=== PATIENT | male | born 1990 | race Caucasian/White ===

== ENCOUNTER → 2018-08-30 | Outpatient (CLI) | payer BC ==
[2018-08-30 15:27] LABS: SEMEN VOLUME 1.5 ML (1.5-5.0)
[2018-09-04 16:18] LABS: MISC LAB TEST & RESULT MTHFR
== END ==
LOC: LAB 14:18
PROVIDERS: ATTEND Obstetrics & Gynecology
DX: N46.9 Male infertility, unspecified (principal); R53.83 Other fatigue
CPT/HCPCS: 36415; 82670; 83001; 83002; 83090; 84146; 84402; 84403; 84443; 84630; 85041; 89320

== ENCOUNTER 2018-11-20 05:41 | Outpatient (CLI) | payer BC ==
[~2018-11-20] VITALS: Ht 185.4 cm; Wt 106.6 kg
[2018-11-20] MEDS ORDERED: OMEP20TA7 PO (12:01)
[2018-11-21] MEDS ORDERED: HYDR-34 PO (10:02)
== END 2018-11-20 14:44 | disposition home or self-care (01) ==
LOC: PREOP 05:41
PROVIDERS: ATTEND Surgery
DX: Z01.818 Encounter for other preprocedural examination (principal)

== ENCOUNTER 2018-11-21 08:03 | Day surgery (SDC) | payer BC ==
[~2018-11-21] VITALS: Ht 185.4 cm; Wt 106.6 kg
[~2018-11-21 08:03] MED LIST: OMEP20TA7 PO
[2018-11-21] MEDS ORDERED: ceFAZolin 2 GM IV Premixed 50 ML IV ONE (08:30)
[2018-11-21 08:41] VITALS: BP 124/69
[2018-11-21] MEDS: LACTATED RINGERS 1,000 ML IV PRN ×2 (08:50→10:59)
[2018-11-21] MEDS ORDERED: FAMOTIDINE 20MG/2ML IV (PEPCID) ONE (09:40)
[2018-11-21] MEDS ORDERED: FAMOTIDINE 20MG/2ML IV (PEPCID) IV ONE (09:45)
[2018-11-21] MEDS ORDERED: DEXAMETHASONE 10 MG/ML (DECADRON) 1 ML VIAL ONE (09:56)
[2018-11-21] MEDS ORDERED: fentaNYL INJECTION 100 MCG/2 ML AMP ONE ×2 (09:56→11:01)
[2018-11-21] MEDS ORDERED: proPOfol 200 MG/20 ML (DIPRIVAN) VIAL IV ONE (09:56)
[2018-11-21] MEDS ORDERED: SEVOFLURANE (ULTANE) 15 ML INHAL SOLN ONE ×4 (09:56→12:04)
[2018-11-21] MEDS ORDERED: MIDAZOLAM 2 MG/2 ML (VERSED) VIAL ONE (09:56)
[2018-11-21] MEDS ORDERED: ONDANSETRON 4 MG/2 ML (SDV) Z0FRAN ONE (09:56)
[2018-11-21] MEDS ORDERED: GLYCOPYRROLATE 0.2 MG/ML (ROBINUL) 2 ML VIAL ONE (09:56)
[2018-11-21] MEDS ORDERED: NEOSTIGMINE 1 MG/ML 5 ML SYRINGE ONE (09:56)
[2018-11-21] MEDS ORDERED: LIDOCAINE PF 2% 5 ML (XYLOCAINE) VIAL ONE (09:56)
[2018-11-21] MEDS ORDERED: ROCURONIUM 10 MG/ML 5 ML SYRINGE IV ONE (09:56)
[2018-11-21] MEDS ORDERED: BUP/EPI 0.5% 1:200,000 (SENSORCAINE) 30 ML VIAL ONE (09:59)
--- NOTE | 2018-11-21 09:59 | Progress Note-Pre Operative ---
Pre-Operative Progress Note H&P Reviewed The H&P was reviewed, patient examined and no changes noted. Date Seen by Provider: Nov 21, 2018 Time Seen by Provider: 09:30 Date H&P Reviewed: Nov 21, 2018 Time H&P Reviewed: 09:30 Pre-Operative Diagnosis: chronic calculous cholecystitis MADELIN PAIGE MD Nov 21, 2018 09:59
[2018-11-21] MEDS ORDERED: morphine INJ 10 MG/ML 1ML (SYR OR VIAL) IVP PRN (10:00)
[2018-11-21] MEDS ORDERED: ONDANSETRON 4 MG/2 ML (SDV) Z0FRAN IVP PRN ×2 (10:00→12:30)
[2018-11-21] MEDS ORDERED: ACETAMINOPHEN 325 MG TABLET PO PRN (10:00)
[2018-11-21] MEDS ORDERED: oxyCODONE/APAP 5/325MG (PERCOCET 5) TABLET PO PRN (10:00)
--- NOTE | 2018-11-21 10:00 | Progress Note-Pre Operative ---
Pre-Operative Progress Note H&P Reviewed The H&P was reviewed, patient examined and no changes noted. Date Seen by Provider: Nov 21, 2018 Time Seen by Provider: : Date H&P Reviewed: Nov 21, 2018 Time H&P Reviewed: :30 Pre-Operative Diagnosis: chronic calculous cholcystitis MADELIN PAIGE MD Nov 21, 2018 10:00
[2018-11-21] MEDS ORDERED: HYDR-34 PO (10:02)
--- NOTE | 2018-11-21 10:03 | Discharge Inst-Surgical ---
D/C Lap Instructions-GRECIA New, Converted, or Re-Newed RX: RX on Chart Follow Up Appt in 2 weeks Activity as tolerated No driving for 24 hours No driving while on pain medications Incentive Spirometry use every 2 hours while awake Regular Diet Symptoms to Report: Fever over 101 degree F, Nausea/Vomiting Infection Signs and Symptoms to report: Increased redness, Foul odor of wound, Increased drainage Bathing instructions: May shower Operative Area Clean/Dry; Keep incision clean/dry If any problems/questions: Contact your physician or go to Emergency Room MADELIN PAIGE MD Nov 21, 2018 10:03
[2018-11-21] MEDS ORDERED: morphine INJ 10 MG/ML 1ML (SYR OR VIAL) ONE (11:44)
--- NOTE | 2018-11-21 12:28 | Progress Note-Post Operative ---
Post-Operative Progess Note Surgeon (s)/Block Operator (s) Surgeon MADELIN PAIGE MD Block Operator: julia erwin EDI PROGRAMMER Pre-Operative Diagnosis chronic calculous cholcystitis Post-Operative Diagnosis same. reflux esophagitis(atage 2), small HH(1.5cm), moderate gastritis. abdominal wall lipoma (2cm) Procedure & Operative Findings Date of Procedure 11/21/18 Procedure Performed/Findings laparoscopic cholecystectomy. EGD with bx. excision abd wall lipoma(2cm) Anesthesia Type GET Estimated Blood Loss Estimated blood loss (mL): minimal Specimens/Packing Specimens Removed gallbladder, abd wall lipoma, ge jxn, antrum MADELIN PAIGE MD Nov 21, 2018 12:28
[2018-11-21] MEDS ORDERED: PROMETHAZINE INJ 25 MG/ML (PHENERGAN) AMP IVP ONE (12:30)
[2018-11-21] MEDS ORDERED: fentaNYL INJECTION 100 MCG/2 ML AMP IVP ONE (12:30)
[2018-11-21] MEDS ORDERED: MEPERIDINE (DEMEROL) INJ 50 MG/ML IVP ONE (12:30)
[2018-11-21 13:15] VITALS: BP 127/80
--- NOTE | 2018-11-21 13:33 | Anesthesia-General Post-Op ---
General Patient Condition Mental Status/LOC: Same as Preop Cardiovascular: Satisfactory Nausea/Vomiting: Absent Respiratory: Satisfactory Pain: Controlled Complications: Absent Post Op Complications Complications None Follow Up Care/Instructions Patient Instructions None needed. Anesthesia/Patient Condition Patient Condition Patient is doing well, no complaints, stable vital signs, no apparent adverse anesthesia problems. ALEX TALBERT DO Nov 21, 2018 13:33
[2018-11-21 13:45] VITALS: BP 119/82
[2018-11-21 14:15] VITALS: BP 137/80
--- NOTE | 2018-11-21 14:45 | OPERATIVE REPORT ---
DATE OF SERVICE: 11/21/2018 PREOPERATIVE DIAGNOSES: 1. Symptomatic chronic calculous cholecystitis. 2. Gastroesophageal reflux disease. POSTOPERATIVE DIAGNOSES: 1. Chronic calculous cholecystitis. 2. Reflux esophagitis stage II. 3. Small hiatal hernia approximately 1.5 cm in size. 4. Moderate severity gastritis. 5. Abdominal wall lipoma 2 cm in size. PROCEDURES: 1. Laparoscopic cholecystectomy. 2. EGD with biopsy. 3. Excision of abdominal wall lipoma. SURGEON: Madelin Paige MD FLOAT PHLEBOTOMIST: Yovany Han APRN ANESTHESIA: General endotracheal. ESTIMATED BLOOD LOSS: Minimal. FINDINGS: Dilated gallbladder with multiple gallstones. Reflux esophagitis stage II, small hiatal hernia approximately 1.5 cm in size, moderate severity gastritis. DISPOSITION: The patient tolerated the procedure well. INDICATIONS: The patient is a 28-year-old male, who has had issues with gastroesophageal reflux disease with epigastric burning sensation for greater than 10 years and he has been taking omeprazole for that time duration. He reports that this has worsened over time and he does have occasional episodes of regurgitation. He also does report that he developed significant pain in the right upper abdominal quadrant several weeks ago after eating a pizza. He presented to the Emergency Department where an ultrasound was performed, which did show gallstones. Upon further questioning, he does report that he has had pain in the right upper abdominal quadrant on an intermittent basis after eating meals, especially greasy. DESCRIPTION OF PROCEDURE: The patient was brought to the operating room, laid supine on the table. After adequate IV pain and sedative medications and general endotracheal intubation, the abdomen was prepped and draped in standard surgical fashion. A 0.5% Marcaine with epinephrine was used to anesthetize the overlying skin in the left upper abdominal quadrant and a transverse skin incision was made using a 15 blade. An 0 silk suture was applied to the medial aspect of the incision for retraction and a Veress needle was inserted with a low opening pressure of 0 mmHg and the abdomen was then insufflated to 15 mmHg pressure. The Veress needle was removed and then a 5 mm Xcel trocar was placed, followed by a 5 mm 45-degree angle laparoscope visualizing the peritoneal cavity. A 4-quadrant abdominal exploration was performed. There was a dilated gallbladder as well as mild omental adhesions to the gallbladder. What was visualized of the liver, omentum, stomach and small bowel appeared normal. Under direct visualization, we then proceeded to place a supraumbilical 10 mm port after the skin and peritoneal lining were anesthetized using 0.5% Marcaine and a transverse skin incision was made using a 15 blade. In a similar manner, a right upper abdominal quadrant 5 mm port was placed. The patient was then placed in reverse Trendelenburg position as well as plane right side up and left side down. The fundus of the gallbladder was then retracted anteriorly and superiorly. The hepatoduodenal ligament was then opened using blunt dissection as well as cautery on the hook instrument. The entire critical view of safety was identified including the cystic duct and artery as well as the triangle of Calot well as the cystic duct and artery as the only two structures going into the gallbladder as well as the cystic plate behind the proximal gallbladder. A timeout was then taken. The cystic duct and artery were then clipped proximally, distally and cut with EndoShears. The gallbladder was then dissected off the liver bed using cautery on the hook instrument with visualization of good hemostasis as well as no leaking ducts of Luschka. The gallbladder was removed through the 10 mm port site using an EndoCatch bag. The 10 mm port site fascia and peritoneum were then closed under direct visualization using a Thai-Linn device and 0 Vicryl suture. A 2cm abdominal wall subcutaneous lipoma was also indentified within the incision and impedent to closure. This was then fully excised using electrocautery. The abdomen was desufflated and remaining ports were removed. All skin incisions were closed using 4-0 Monocryl running subcuticular sutures. Wounds were then cleaned and covered with Dermabond. The patient tolerated this portion of procedure well. We will start IV normal pain medication as well as a clear liquid diet. Once he is tolerating clears, has good pain control with oral pain medications and is ambulating well, we will discharge him home. He will be instructed to do no heavy lifting or exertion for the next two weeks. Under the same anesthesia, we then proceeded with the EGD portion of the procedure. The endoscope was placed in the mouth, visualizing the pharynx and hypopharyngeal region. Vocal cords, epiglottis and vallecula identified and appeared to be normal. The endoscope was then gently intubated at the esophageal opening and esophagus was insufflated. The endoscope was then advanced to the first, second and third portion of esophagus at the level of the GE junction, a reflux esophagitis stage II identified. There were no ulcers or strictures identified in this region. A biopsy was taken with forceps with visualization of good hemostasis. The endoscope was then advanced into the stomach and endoscope retroflexed, visualizing a small hiatal hernia, approximately 1.5 cm in size. A moderate severity gastritis was also noted. No formal ulcerations, polyps or any neoplasms. A biopsy was taken of the antrum with forceps to rule out H. pylori with visualization of good hemostasis. The endoscope was then advanced to the pylorus and the first and second portion of the duodenum, which appeared normal and no distal obstructions. The endoscope was then slowly withdrawn while taking a second look and suctioning of residual air with no additional findings. The patient tolerated the procedure well. We will recommend the necessary lifestyle and diet accommodation including small and more frequent meals, avoidance of eating at night as well as head elevation while lying supine. He also needs to avoid caffeinated beverages, spicy, greasy and acidic foods. We will also start him on Protonix 40 mg daily. Job ID: [id number] DocumentID: [id number] Dictated Date: 11/21/2018 12:35:56 Fern Cutter Date: 11/21/2018 14:44:00 Dictated By: MADELIN PAIGE MD [facility]
[2018-11-21 14:55] VITALS: BP 137/80
== END 2018-11-21 14:55 | disposition home or self-care (01) ==
LOC: SDC 08:03
PROVIDERS: ATTEND Surgery
DX: K81.2 Acute cholecystitis with chronic cholecystitis (principal); K21.0 Gastro-esophageal reflux disease with esophagitis; K44.9 Diaphragmatic hernia without obstruction or gangrene; K29.70 Gastritis, unspecified, without bleeding; D17.1 Benign lipomatous neoplasm of skin and subcutaneous tissue of trunk; Z87.891 Personal history of nicotine dependence
CPT/HCPCS: 87081; 94664